=== PATIENT | female | born 1995 | race Caucasian/White ===

== ENCOUNTER 2020-01-30 09:00 | Outpatient (RCR) | payer OTHER, SELFPAY ==
--- NOTE | 2020-01-30 09:05 | BH.SGPN.GN ---
Behaviors/Verbalizations/Mental Status: [] Eye contact is good. Motor activity is appropriate. Appearance is casual. Speech is Appropriate. Mood is depressed. Affect is flat. Thoughts are linear and logical. No evidence of psychosis. Reviewed daily check in sheet and no reports of suicidal ideations or intent. Client Response/Progress/Benefit: [] Pt was attentive during group discussion and participated when prompted. Shared with the group that this is her first day in IOP. Reports that she entered the program to work on her anxiety and depression. Group provided support, encouragement, and feedback on the program, its benefits, and how to mis manager first day. No progress noted as this was pt's first day. Will continue in IOP to maintain safety, increase healthy coping, and stabilize mood. Narrative Note: []
--- NOTE | 2020-01-30 10:10 | BH.SGPN.GN ---
Behaviors/Verbalizations/Mental Status: []]Eye contact is good. Motor activity is appropriate. Appearance is casual. Speech is Appropriate. Mood is anxious and depressed. Affect is constricted. Thoughts are linear and logical. No evidence of psychosis. Client Response/Progress/Benefit: []Pt mostly passive participant AEB pt only providing input when elicited by therapist, however willing to complete worksheet and appeared to listen to others. Pt appeared to connect with others during discussion about impact of unhealthy anger responses. Shared her emotions underlying anger include: shame, hopelessness, disappointment, and pride. Pt identified the following ways she expresses anger: hostility, impulsive, sarcasm, isolate and self-deprecating jokes. Pt seemed to benefit from increased awareness of how unmanaged anger can impact self and others. Pt's first day. Pt to continue IOP to increase healthy coping skills, improve daily functioning and prevent decompensation. Narrative Note: []
--- NOTE | 2020-01-30 11:12 | BH.SGPN.GN ---
Behaviors/Verbalizations/Mental Status: []Client alert and oriented, casually dressed and groomed. Eye contact good. Motor activity appropriate. Speech within normal limits. Affect constricted. mood depressed. Thoughts linear, logical, no signs of hallucinations or delusions. Client Response/Progress/Benefit: []Pt was engaged throughout AEB contributing to group discussion and self-reflection. Pt contributed as the group provided examples of physical warning signs for anger and identified personal warning signs. These included: clenched jaw, shaking, flared nostrils, and stomach issues. Pt contributed as group brainstormed healthy coping skills for better managing anger which included: music, walking/exercise, opposite action, identifying distortions, DDD, thinking of the consequences, and meditation. Pt appeared to benefit from identifying different techniques to manage anger as well as gaining awareness of potential consequences of unmanaged anger. Pt selected listening to music and thinking of the consequences as coping skills pt would like to try to regulate anger. Client?s first day of IOP tx. Will continue IOP to prevent decompensation, reduce SI, and improve daily functioning. Narrative Note: []
--- NOTE | 2020-01-30 15:29 | BH.COMM ---
Communication Note - Communication with Client Communication Note: Met with client to complete initial paperwork. No significant changes since pre-admission screening. Completed [facility]. Client has history of one previous suicide attempt in 2011 via overdose. Client stated the overdose did not require medical intervention, but client did go to the ER. Client currently reports having thoughts of killing herself (with no intent) within the past month as well as thoughts of not caring if she . Client reports she has difficulty controlling the thoughts, but client is eventually able to stop them. Client shared the thoughts last for over an hour several times a week. Client denies any active SI, plan, or intent as of today and reports ability to maintain safety. No access to weapons at home and denies stockpiles of medication. Does not present as imminent danger to herself due to no active SI, plan, or intent. Protective factors. Future-oriented with hopes to graduate and become a therapist.
--- NOTE | 2020-01-31 09:05 | BH.SGPN.GN ---
Behaviors/Verbalizations/Mental Status: [] Eye contact is good. Motor activity is appropriate. Appearance is casual. Speech is Appropriate. Mood is depressed. Affect is flat. Thoughts are linear and logical. No evidence of psychosis. Reviewed daily check in sheet and pt reports 3/5 for suicidal ideations and 1/5 for intent. Therapist notified Client Response/Progress/Benefit: [] Pt was an active participant in group discussion. Emotion for today is hopeful. Mental health wins include wrapping [employer] gifts and cleaning her living room. Shared that she continues to utilize sleep as a coping skill which ultimately makes her more depression and less motivated. Small tasks such as picking up prescriptions seems overwhelming and exhausting therefore she talks herself out of them. Group provided some feedback regarding thought challenging and setting small goals which she appeared to be receptive too. No progress noted as this is 2nd day however reports being hopeful. Benefited from group feedback and empathy. Will continue in IOP to prevent decompensation, stabilize mood and increase healthy coping. Narrative Note: []
--- NOTE | 2020-01-31 10:10 | BH.SGPN.GN ---
Behaviors/Verbalizations/Mental Status: []Client alert and oriented, neatly dressed and groomed. Eye contact good. Motor activity appropriate. Speech within normal limits. Affect congruent to topics being discussed, mood dysthymic. Thoughts linear, logical, no signs of hallucinations or delusions. Client Response/Progress/Benefit: []Client receptive of session, attentive in discussion and activity. Client discussed the quote and connected with personal and interpersonal consequences of not managing emotions. Client helped group identify barriers that impact one?s ability to communicate when emotions are high. These barriers included; negative thoughts, anxiety, and shutting down. Group discussed why it is important to be able to communicate effectively when emotions are high. Client participated in the activity and did well to manage emotions throughout. Client shared it was hard for client to not have the full perspective during the activity, but client stated the activity ?was a good team building exercise.? Client appeared to benefit from increasing awareness of how emotions can impact communication and practicing in the moment coping skills. Client?s first week of IOP tx. Will continue IOP tx to prevent decompensation, improve daily functioning, and reduce negative thinking. Narrative Note: []
--- NOTE | 2020-01-31 14:16 | BH.MDN ---
Multi-Disciplinary Note - Note 30-min Individual Time Started:: 12:15 Date: 01/31/20 Purpose of session/treatment goals addressed:: The purpose of this session was to gather information on client's current stressors, symptoms, and treatment goals. Another goal was to build rapport and provide psychoeducation. Eye Contact:: Good Motor Activity:: Appropriate Appearance:: Neat Speech:: Appropriate Mood:: Dysthymic Affect:: Constricted Thoughts:: Linear, Logical, No evidence of hallucinations/delusions noted Staff Interventions:: Therapist used active listening and open-ended questions to explore client's current stressors, symptoms, history, and treatment goals. Therapist used strengths perspective to build rapport and provided psychoeducation on maintenance cycles and client's diagnoses. Client Response:: Client responded well to session, open to meeting with therapist. Client stated she felt more comfortable today in group and reports being hopeful that IOP will help client. Client connected with psychoeducation on maintenance cycles and stated that she has been struggling with a depressive episode for the past 3-4 months. Client shared she sleeps constantly and has a lot of negative thoughts about herself. Client reported ?I don?t self-harm physically, but I self-harm mentally.? Client stated she was also recently diagnosed with bipolar disorder, but client connects most with depression and not myriam. Client endorses history of impulsive behaviors, but it is uncertain if that is due to borderline or complex trauma. Client identified treatment goals for IOP which included: reducing sleep, increasing healthy coping skills, reducing impulsive behavior, making healthier choices, and reducing negative beliefs of self. Client is currently getting her masters in counseling and is very motivated. Client admits that she has unrealistic expectations for herself which leads to negative self-talk. Client reports being interested in learning CBT and DBT skills to help manage depression and borderline symptoms. Client stated she felt relief when diagnosed with BPD as client felt it gave a name to what I was going through. Client receptive to homework on behavioral activation. Risks/Concerns:: Client reports chronic thoughts of not wishing she existed. Client denies any active suicidal ideations, plan, or intent as of 01/31/20. Client reports ability to maintain safety today and is future oriented. Progress Toward Goals/Plan:: Client's second day of IOP tx. Client reports her anxiety about IOP has decreased and client felt more comfortable today. Client reports feeling motivated and hopeful that IOP will teach her coping skills to better manage depression. Client reports previously being diagnosed with borderline personality disorder and bipolar disorder. Client stated she relates most with the borderline personality diagnosis as client reports history of impulsive behaviors, low self-worth, and interpersonal relationship issues. Client currently endorses a depressed mood, increased sleep (up to 20 hours some days), anhedonia, low motivation, passive SI, and negative thoughts of self. Will continue IOP tx to prevent decompensation, improve mood stability, and increase healthy coping skills. Time Stopped:: 12:45
--- NOTE | 2020-01-31 14:17 | BH.MTP_ITS ---
Master Treatment Plan - Patient Information Program Physician:: Dr. Amy Granados Primary Therapist:: Venessa SIMS - Psychiatric Diagnoses Psychiatric Diagnoses:: Bipolar 2 disorder, most recent episode depressed; generalized anxiety disorder; Cluster B traits. Diagnosis Code(s):: F 31.81 - Estimated LOS Estimated LOS (in weeks):: 6 Problem/Goal #1 - Problem/Goal #1 Stated Goal:: Client will reduce depression, negative thoughts of self, and isolative behaviors due to Bipolar disorder through the Intensive Outpatient Program. Description of Barriers: Client reports history of impulsive behavior that impacts client's ability to maintain relationships. Client endorses a depressed mood, negative core beliefs, isolation, and unrealistic expectations of self. Client's job is mentally and physically straining on client and client is currently obtaining a master?s degree online. Additionally, client does not have an outpatient counselor and reports limited social supports. Functional Impact: Client is a 24-year-old female with a history of bipolar II and borderline personality disorder. Client was referred to [facility] by her outpatient psychiatrist, Dr. Benitez, at [place] [address]. Client was referred due to worsening of depressive symptoms over the past 3-4 months. Client endorses fleeting suicidal ideations, hopelessness, increased sleep, anhedonia, poor concentration, crying spells, poor appetite, and lack of motivation. Client has a history of one previous suicide attempt eight years ago. Client denies any active suicidal ideations at admission. Client has survival ambivalence and stated, I wouldn't mind if I didn't wake up. Client also endorses ruminations and anxiety about performance and often worries about what others think of client. Client's symptoms are currently impacting her ability to function at her baseline. Goal Relevant Strengths/Supports: Client is motivated, has good insight to triggers and symptoms, and is willing to learn new strategies. Client is currently getting her master?s in psychology and works [employer]. - Objectives Objective #1 Stated Objective: Client will learn and utilize 2-3 healthy coping strategies to better manage depressive and mood symptoms as shown by reduced DSM-5 scores. Interventions: Through group and individual sessions, therapist will help client identify triggers and warning signs of depression and emotional dysregulation including emotional, physical, and behavioral changes. Therapist will teach client various coping skills to manage her symptoms and give client tangible resources to use to regulate emotions. Therapist will use cognitive restructuring techniques and help client gain awareness of negative thoughts that reinforce depressive cycles. Therapist will help client incorporate behavioral activation and assist client in setting SMART goals. Discharge Criteria: Client will have met this goal when she can report learning and using at least 2 coping skills to manage depressive symptoms and show a reduction in DSM-5 symptoms. Target Date: 03/12/20 Review Date: 03/01/20 Status: open Objective #2 Stated Objective: Client will identify at least 2-3 negative self-talk messages used to reinforce negative core beliefs and low self-worth and replace thoughts with more realistic messages. Interventions: Therapist will help client identify distorted, negative beliefs about self and replace with more realistic, affirmative messages. Therapist will use CBT to help client increase insight to the connection between thoughts, emotions, and behaviors. Therapist will also use dialectical thinking to help client combat all or nothing expectations and perfectionism. Therapist will encourage client to practice thought challenging. Discharge Criteria: Client will have achieved this goal when can verbalize at least 2 negative self-talk messages and effectively replace those thoughts with affirmative messages. Target Date: 03/12/20 Review Date: 03/01/20 Status: open Problem/Goal #2 - Problem/Goal #2 Stated Goal:: Client will increase emotional regulation and reduce intensity and duration of anxiety symptoms. Description of Barriers: Client reports history of impulsive behavior that impacts client's ability to maintain relationships. Client endorses a depressed mood, negative core beliefs, isolation, and unrealistic expectations of self. Client's job is mentally and physically straining on client and client is currently obtaining a master?s degree online. Additionally, client does not have an outpatient counselor and reports limited social supports. Functional Impact: Client is a 24-year-old female with a history of bipolar II and borderline personality disorder. Client was referred to [facility] by her outpatient psychiatrist, Dr. Benitez, at [place] [address]. Client was referred due to worsening of depressive symptoms over the past 3-4 months. Client endorses fleeting suicidal ideations, hopelessness, increased sleep, anhedonia, poor concentration, crying spells, poor appetite, and lack of motivation. Client has a history of one previous suicide attempt eight years ago. Client denies any active suicidal ideations at admission. Client has survival ambivalence and stated, I wouldn't mind if I didn't wake up. Client also endorses ruminations and anxiety about performance and often worries about what others think of client. Client's symptoms are currently impacting her ability to function at her baseline. Goal Relevant Strengths/Supports: Client is motivated, has good insight to triggers and symptoms, and is willing to learn new strategies. Client is currently getting her master?s in psychology and works [employer]. - Objectives Objective #1 Stated Objective: Client will identify 2-3 cognitive distortions that lead to mood dysregulation and learn 2-3 ways to manage these thoughts to improve mood stability. Interventions: Therapist will provide education on the most common cognitive distortions and teach client the connection between thoughts, emotions, and feelings. Therapist will assist client in identifying, challenging, and replacing dysfunctional thoughts with positive, more realistic thoughts. Therapist will use CBT and DBT techniques to help client gain awareness of thinking errors and learn how to more effectively handle negative thoughts that reinforce unhealthy coping skills. Discharge Criteria: Client will have accomplished this goal when can identify at least 2 cognitive distortions that reinforce mood dysregulation and at least 2 c oping skills to manage negative thoughts. Target Date: 03/12/20 Review Date: 03/01/20 Status: open Objective #2 Stated Objective: Client will identify 2-3 anxiety triggers and 2 coping skills to reduce anxiety as shown by decreased DSM-5 cross cutting symptom measure scores. Interventions: Therapist will help client increase awareness of anxiety triggers and educate client on personal core beliefs associated with anxiety. Through group and individual therapy, client will learn various calming and mindfulness strategies to promote emotional regulation and reduction of anxiety. Therapist will encourage client to implement healthy coping skills on a regular basis and increase self-care in all areas. Discharge Criteria: Client will have accomplished this goal when can report at least 2 triggers for anxiety and 2 strategies to manage symptoms. Additionally, client will have accomplished this goal when she can report reduced DSM-5 cross cutting symptoms for anxiety. Target Date: 03/12/20 Review Date: 03/01/20 Status: open
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
--- NOTE | 2020-02-01 09:03 | BH.SGPN.GN ---
Behaviors/Verbalizations/Mental Status: []Eye contact is fair. Motor activity is appropriate. Appearance is casual. Speech is Appropriate. Mood is depressed and anxious. Affect is constricted. Thoughts are linear and logical. No evidence of psychosis. Client Response/Progress/Benefit: []Pt responded well to session AEB client openly sharing thoughts and feelings and listened attentively to others. Patient identified a mental positive as using upset action to make her self going into the pharmacy to get her medications. Client stated after she was able to successfully get her medications she felt more motivated and was able to get more done throughout the day. Client reports she did take a 1 hour nap but notes this is progress because she typically takes 3 to 4-hour naps. Client recognizes that sometimes her naps are just as a way to escape and are not very productive. Client reported additional mental positive as talking to her mom the phone whom is recovering from COVID. Client identified her current stressor is worrying about her mom's health during her recovery from COVID. Client stated she is currently feeling tired despite getting sufficient amount of sleep. Client seemed benefit from support from peers in regards to increasing active coping skills. Client is to continue IOP level of care to increase healthy coping skills, challenge distorted thoughts, and prevent decompensation. Narrative Note: []
--- NOTE | 2020-02-01 10:10 | BH.SGPN.GN ---
Behaviors/Verbalizations/Mental Status: [] Eye contact is good. Motor activity is appropriate. Appearance is casual. Speech is Appropriate. Mood is anxious. Affect is congruent. Thoughts are linear and logical. Client Response/Progress/Benefit: [] Pt was an active participant in group discussion and activity. Attentive during psychoeducation on the stages of change (pre-contemplation, contemplation, preparation, action, and maintain). Worked with peers to identify barriers to make changes which included; environment, doubting oneself, worry about what others think, toxic people, fears, lack of resources, doubting one's capability, and fear of failure. Participated in discussion with peers on the benefits of change which included; improved relationships, growth, improved mood, healthier environment, and improved mental health. Benefited by increasing awareness of the emotions of change as well as benefits and obstacles to making changes. Narrative Note: []
--- NOTE | 2020-02-01 10:30 | BH.NA ---
Physical Data - Vital Signs Pulse Rate: 77 Blood Pressure: 120/63 - Height/Weight Height: 1.6 m Weight:: 98.883 kg Weight in Pounds: 218.0 lbs Current Medication Compliance - Medication Compliance Do you take your medication as prescribed?: Yes Nutritional History - Appetite Nutritional Instructions:: If client shows signs of a swallowing problem, weight change of 10 pounds or more in the last month, or is on a diabetic diet, the physician will review and request a dietitian consult, as appropriate. All unintentional weight loss will be referred to the physician for decision on need for dietitian consult. Describe your appetite:: Good Additional nutritional information:: Client states recent weight loss but states she is intentionally trying to lose weight. Functional Assessment - Sleep Pattern Describe any problems with sleeping: Client states on days that she works, she is sleeping about 9 hours. Client states on her days off, she sleeps about 20 hours per day at times. - Activities Motor Activity:: Functional Sensory/Communication Assess - Communication Problems Do you have difficulty understanding what people are saying?: No What is your primary language?: [place] Medical Problems/History - Pain Assessment Do you have acute or chronic pain?: No - Additional History Additional comments:: bipolar, borderline personality Surgical History - Surgical History Have you had any surgeries? If so, list type and date:: Yes - tonsilectomy, wisdom teeth Substance Abuse - Substance Abuse Please describe substance abuse in the last 30 days:: Client denies alcohol use. Client states she vapes tobacco and has for approximately one month. Client reports past substance use, stating the last time she used marijuana was about 2 months ago. Client reports 1-2 cups of coffee per day. Mental Status Summary - Mental Status Significant Findings/Observations on Appearance and Mood:: Client is alert and oriented x 4. Client is wearing a mask due to Covid 19 pandemic. Client is casually groomed. Client is cooperative with assessment. Client makes good eye contact. Client's voice has normal rate and volume. Client appears mildly anxious. Client makes logical associations and has normal processing. Client denies delusions/hallucinations. Client states she has impulsive thoughts of SI at times, but denies methods/plan. Suicide Assessment - Suicidal Ideation Are you currently or have you been suicidal in the past?: Yes - fleeting SI Suicidal Intentional Rating Scale (SIRS): Suicidal thoughts (past) Physician Notification: If Active suicidal thoughts/Will not contract for safety is checked, contact physician and document in the Physician Notification section below. Past Psychiatric History - MH Treatment Hx Past Psychiatric Medications:: Abilify, gapapentin, Zoloft, Celexa, [place], Latuda Age of first mental health symptoms: Client states she was diagnosed with borderline personality about 3-4 years ago. Client states she was diagnosed with bipolar (depressed) in March of this year and has tried several different medications for same. Describe (age, circumstance, etc) any past hospitalizations: None. Current providers for mental health treatment (counselor, psychiatrist, family service caseworker, etc.): Dr. Benitez is psychiatrist at [place] [id number]. Fall Risk Assessment - Age Age: Less than 60 - Mental Status Mental Status: Willing & able to ask for assistance when needed - Physical Status Physical Status: No problems - Impairments Impairments: None - Elimination Elimination: Continent AND independent - Gait or Balance Gait or Balance: Walks independently - Hx of Falls History of falls in the past 6 months: No known history - Medications/Substances Psychotropics:: Antidepressants, Mood stabilizers Medications/substances used within the past 24 hours or ordered to administer: 1-2 of the medications/substances listed above - Total Score Total Points:: 1 RN Summary of Impressions - Impressions Recommendations: Include psychiatric and medical issues, treatment planning recommendations, and discharge planning needs. Impressions: Psychiatric Issues: Bipolar 2 disorder, most recent episode depressed; generalized anxiety disorder; cluster B traits - Level of Care How do the client's current symptoms and functional deficits support need for this level of care?: Client was referred to program by outpatient psychatrist. Client states she was thinking about voluntary hospitalization until she learned of IOP program. Client reports for the last 3-4 months feelings of increased depression and fleeting SI. Client reports still fleeting feelings of SI without plan. Client endorses increased sleep, hopelessness, irritable, and impulsive SI. IOP will promote gains and prevent further decompensation while providing social support and skills training.
--- NOTE | 2020-02-01 11:05 | BH.SGPN.GN ---
Behaviors/Verbalizations/Mental Status: []Client alert and oriented, neatly dressed and groomed. Eye contact good. Motor activity appropriate. Speech within normal limits. Affect constricted, mood dysthymic. Thoughts linear, logical, no signs of hallucinations or delusions. Client Response/Progress/Benefit: []Client responded well to session AEB taking notes and contributing when prompted. Client listened during psychoeducation on the change process and different emotions in each stage of change. Client identified a change client would like to make to improve mental health which was to ?work out more often? as client believes this change will increase self-esteem and mood. Client reports belief she is currently in between the preparation and action stages as client goes to the gym ?sometimes? but recognizes she has not been consistent. Client identified personal barriers to change and reported she plans to practice thought reframing and opposite action to overcome her barriers. Appeared to benefit from identifying what stage of change client is in and identifying strategies to overcome barriers. Will continue IOP tx to prevent decompensation, combat cognitive distortions, and improve daily functioning. Narrative Note: []
[2020-02-01 11:56] VITALS: BP 120/63; PULSE 77
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
--- NOTE | 2020-02-01 12:29 | BH.PSY.EVA_ITS ---
Initial Treatment Plan - Patient Information Visit Information: ADMISSION DATE: EXPECTED LOS: 4-6 weeks - Problems/Symptoms Problem #1:: Depression Symptom:: Sadness, crying, anhedonia, increased sleep, passive thoughts a nd passive suicidal ideation Problem #2:: Anxiety Symptom:: Rumination, worry, avoidance
--- NOTE | 2020-02-06 09:10 | BH.SGPN.GN ---
Behaviors/Verbalizations/Mental Status: [] Eye contact is good. Motor activity is appropriate. Appearance is casual. Speech is Appropriate. Mood is euthymic. Affect is full. Thoughts are linear and logical. No evidence of psychosis. Reviewed daily check in sheet and no reports of suicidal ideations or intent. Client Response/Progress/Benefit: [] Pt participated at times during group discussions. Emotion for today is content. Shared some mental health wins over the past 4 days most notably that she stayed awake from 10a-10pm yesterday. Since sleep has been primary coping skill and mean to escape she had been sleeping 13 hours per day. She is proud of herself. Also insight that anxiety and worry impact her more than she originally thought. Due to snowy weather over the holiday her anxiety was increased. She actually called off work due to her anxiety about driving in the snow. Three weeks into her new medication and she is optimistic. Also optimistic about IOP. Progress noted per pt report. Benefited from group support, encouragement, and feedback. Will continue in IOP to increase healthy coping, stabilize mood, and improve functioning. Narrative Note: []
--- NOTE | 2020-02-06 10:18 | BH.SGPN.GN ---
Behaviors/Verbalizations/Mental Status: []Client alert and oriented, casually dressed and groomed. Eye contact good. Motor activity appropriate. Speech within normal limits. Affect congruent, mood euthymic and anxious. Thoughts linear, logical, no signs of hallucinations or delusions. Client Response/Progress/Benefit: []Client engaged throughout session AEB active participation. Connected with discussion on crisis and how coping with external crises by using unhealthy coping skills could result in a personal crisis. Client shared her responses to crisis can be impulsive and has led to client losing relationships in the past. Group reflected on the importance of having awareness of personal warning signs in order to prevent reaching crisis point. Group identified potential warning signs for crisis and client completed the personal warning signs worksheet. Client identified personal crisis warning signs to include: sleeping more, negative thinking, and loss of interest. Client benefited by increasing awareness of what leads to crisis and personal warning signs. Progress noted in client?s report of practicing opposite action this weekend. Will continue IOP tx to prevent decompensation, improve mood stability, and reduce negative thinking. Narrative Note: []
--- NOTE | 2020-02-06 11:20 | BH.SGPN.GN ---
Behaviors/Verbalizations/Mental Status: []Client alert and oriented, casually dressed and groomed. Eye contact good. Motor activity appropriate. Speech within normal limits. affect congruent. Mood euthymic. Thoughts linear, logical, no signs of hallucinations or delusions. Client Response/Progress/Benefit: []Client responded well to session as evidenced by client listening attentively to others and providing strategies during discussion. Client identified her warning signs for crisis and gained further awareness of earliest warning signs.Client created a crisis action plan to help client better manage warning signs for crisis. Client?s action plan for sleeping more than usual included: opposite action, finding something to occupy self, engaging in an activity like crafts or exercise. Client appeared to benefit from creating a crisis action plan and increasing self-awareness. Progress noted in client?s increased engagement in program and reporting being able to not sleep as avoidance yesterday. Client to continue IOP tx to increase healthy coping, improve daily functioning, and prevent decompensation.
--- NOTE | 2020-02-06 13:47 | BH.MDN_ITS ---
Multi-Disciplinary Note - Note 45-min Individual Time Started:: 12:02 Date: 02/06/20 Purpose of session/treatment goals addressed:: The purpose of this session was to work on goal #1 of client's tx plan. Eye Contact:: Good Motor Activity:: Appropriate Appearance:: Casual Speech:: Appropriate Mood:: Euthymic, Anxious Affect:: Congruent Thoughts:: Linear, Logical, No evidence of hallucinations/delusions noted Staff Interventions:: Therapist reviewed client's homework from last session. Therapist used cognitive restructuring techniques and helped client gain awareness of negative thoughts that reinforce depressive cycles. Therapist reviewed the common cognitive distortions and used dialectical thinking to help client combat all or nothing expectations and perfectionism. Therapist gave client a thought log for homework. Client Response:: Client responded well to session, open to meeting with therapist. Client did homework from last session and reports behavioral activation and opposite action were helpful. Client shared Thursday client did not nap and spent time with two different supports. Client gained awareness that her anxiety is more impactful to my mental health than I thought. Client shared she called off work due to increased anxiety triggered by the snowy weather. Client able to use self-compassion to reframe this event and willing to learn more about the cognitive triangle. Client read through the different distortions and connected most with all or nothing thinking, disqualifying the positives, mind-reading, and shoulds/musts. Client recognized that her all or nothing thinking impacts her self-worth, performance in school, and friendships. Client connected that all or nothing thinking can reinforce borderline personality traits. Client willing to practice self-compassion and thought challenging techniques. Client will complete a thought log for homework. Risks/Concerns:: Client was future oriented and reports high motivation today due to good stress. Client denies any active suicidal ideations, plan, or intent as of 02/06/20. Client's daily symptom tracker scores were significantly below her baseline. Progress Toward Goals/Plan:: Client reports progress in using opposite action this weekend which helped client get out of the house and not take any naps Thursday. Client also reports overall improved mood today. Client stated her an xiety became so bad on Thursday she had to call off work. Client continues to endorse ruminations, avoidance behaviors, negative thoughts of self, mood instability, and low motivation. Client will continue IOP tx to prevent decompensation, improve emotional regulation skills, and improve daily functioning Time Stopped:: 12:40
== END 2020-02-09 23:59 ==
LOC: BHIOP 09:00
PROVIDERS: Referring Provider Psychiatry & Neurology Psychiatry; Visit Provider Psychiatry & Neurology Psychiatry
DX: F31.81 Bipolar II disorder (principal); F41.8 Other specified anxiety disorders; Z79.899 Other long term (current) drug therapy; Z91.5 Personal history of self-harm; F17.210 Nicotine dependence, cigarettes, uncomplicated; F12.90 Cannabis use, unspecified, uncomplicated
CPT/HCPCS: H0035; 90832; 90834; 90853

== ENCOUNTER 2020-02-13 09:00 | Outpatient (RCR) | payer OTHER, SELFPAY ==
[2020-02-10 00:41] VITALS: BP 120/63; PULSE 77
--- NOTE | 2020-02-13 09:00 | BH.SGPN.GN ---
Behaviors/Verbalizations/Mental Status: [] Eye contact is good. Motor activity is appropriate. Appearance is neat. Speech is Appropriate. Mood is euthymic. Affect is full. Thoughts are linear and logical. No evidence of psychosis. Reviewed daily check in sheet and no reports of suicidal ideations or intent. Client Response/Progress/Benefit: [] Pt was an active participant in group discussion. Emotion for today is estatic. Shared that she has had no naps since last week , which is huge improve. Feeling more motivated and less depressed. Functioning better at home and work. I haven't call off work due to mental issues all week. Has set some goals for the new year which include reading a book a month and losing 5 pounds per month. Progress noted per pt report. Benefited from group praise. Will continue in IOP to maintain safety, increase healthy coping, and improve functioning. Narrative Note: [] This psychotherapy group was provided via telehealth using two-way, real-time interactive telecommunication technology between the patients and the provider.?The interactive telecommunication technology included audio and video.? ?The patient was offered telemedicine as an option for care delivery during the COVID-19 pandemic and consented to this option. ?Patient location: [place] ?Provider located at [facility]
--- NOTE | 2020-02-13 10:15 | BH.SGPN.GN ---
Behaviors/Verbalizations/Mental Status: []Client alert and oriented, casually dressed and fairly groomed. Eye contact good. Motor activity appropriate. Speech within normal limits. Affect congruent, mood euthymic.Thoughts linear, logical, no signs of hallucinations or delusions. Client Response/Progress/Benefit: []Client was an engaged participant AEB taking notes, providing some input, and attentively listening throughout. Connected with group topic of perspective and the impacts of one?s perspective on mental health. cClient worked with the group to identify how a negative perspective can impact mental health which included: self-fulfilling prophecy, maintain unhealthy coping, prevent progress and lead to more negative thinking.?Client contributed as group discussed ways a positive perspective can impact mental health. Client appeared to benefit from increasing understanding of mental health benefits of a positive perspective and potential consequences to progress when perspective is negative. Progress noted by client's report of improved mood. Client is to continue IOP to maintain gains, continue to challenge negative thoughts and prevent decompensation. Narrative Note: []
--- NOTE | 2020-02-13 11:15 | BH.SGPN.GN ---
Behaviors/Verbalizations/Mental Status: []Client alert and oriented, casually dressed and groomed. Eye contact good. Motor activity appropriate. Speech within normal limits. Affect congruent. Mood euthymic. Thoughts linear, logical, no signs of hallucinations or delusions. Client Response/Progress/Benefit: []Client responded well to session, actively participating. Connected with the benefits of recognizing personal strengths on improving mental health which included: increased self-confidence, improved self-esteem, and better follow through. Client able to identify personal strengths she possesses which included: dedication, persistence, intelligence, empathy, and being open-minded. Group discussed how personal strengths can help client make progress for mental health and identified strategies to help them acknowledge strengths more often. Client shared she wants to practice using her empathy and knowledge of coping skills to become more self-compassionate. Appeared to benefit from recognizing personal strengths and identifying strategies to increase recognition of strengths. Client plans to continue IOP tx to promote gains, decrease negative thinking, and improve mood stability. Narrative Note: []
--- NOTE | 2020-02-14 15:07 | BH.COMM ---
Communication Note - Communication with Client Communication Note: Therapist and IOP director met with client to discuss changes in client's insurance deductable due to the new year and plan of care moving forward. Client plans to continue IOP tx and will attend tomorrow 02/14/19.
--- NOTE | 2020-02-15 09:05 | BH.SGPN.GN ---
Behaviors/Verbalizations/Mental Status: []Client alert and oriented, casually dressed and appropriately groomed. Eye contact fair. Motor activity appropriate. Speech within normal limits. Affect congruent. Mood euthymic, slightly anxious. Thoughts linear, logical, no signs of hallucinations or delusions. Client Response/Progress/Benefit: []Pt responded well to session AEB pt listening attentively to peers and sharing thoughts and feelings. Pt reported mental health positive as choosing to invest in herself by continuing to stay in IOP, despite worries about money since her insurance deductible is back to zero. Pt stated she realized if she didn't choose to invest in herself then she likely wouldn't be able to function much longer. Pt identified additional mental health positive as taking time to get her hair done. Progress noted with pt putting her own mental health as a priority. Pt is to continue IOP to increase health coping, challenge distorted thoughts and prevent decompensation. Narrative Note: []
--- NOTE | 2020-02-15 10:10 | BH.SGPN.GN ---
Behaviors/Verbalizations/Mental Status: [] Eye contact is good. Motor activity is appropriate. Appearance is casual. Speech is Appropriate. Mood is euthymic. Affect is full. Thoughts are linear and logical. No evidence of psychosis. Client Response/Progress/Benefit: [] Pt was an active participant in group discussions. Attentive during psycho-education on 4 types of conflict styles (Competing, Collaborating, Avoiding, and Accommodating). Worked with group to define conflict and identify how conflict is helpful; (allows us to grow, helps us stand up for ourselves, empowers us, helps clarify, and helps us gain clarification). With peers identified what prevents them from addressing or managing conflict which included; emotions, past experiences, fear, upbringing, scared how they will react, fear of backlash from others, and possibility on things escalating. Pt believes her conflict style is competing which has drawbacks of not being open to others, guilt, and lost relationships, and being aggressive. Benefited from group due to increase insight and awareness of conflict, conflict styles, and obstacles to managing conflict. Narrative Note: []
--- NOTE | 2020-02-15 11:11 | BH.SGPN.GN ---
Behaviors/Verbalizations/Mental Status: []Client alert and oriented, casually dressed and groomed. Eye contact good. Motor activity appropriate. Speech within normal limits. Affect congruent, mood euthymic. Thoughts linear, logical, no signs of hallucinations or delusions. Client Response/Progress/Benefit: []Client engaged in session AEB contributing to discussion and taking notes. Client did well to participate during the activity in which participants were challenged to eliminate various items through group consensus. Client contributed to discussion of the barriers that occurred during the activity as well as the conflict resolution strategies. Client reviewed the worksheet on fair fighting rules to cope with conflict and client selected asking herself why she is upset before addressing conflict as the skill client would like to improve. Client shared this skill could reduce client?s impulsive reactions to conflict. Appeared to benefit from learning strategies to better manage conflict. Progress noted in client?s report of reduced sleeping and improved mood this week. Will continue IOP tx to reduce negative thinking, increase emotional regulation skills, and further improve functioning. Narrative Note: []
--- NOTE | 2020-02-21 09:10 | BH.SGPN.GN ---
Behaviors/Verbalizations/Mental Status: [] Eye contact is good. Motor activity is appropriate. Appearance is casual. Speech is Appropriate. Mood is depressed. Affect is flat. Thoughts are linear and logical. No evidence of psychosis. Reviewed daily check in sheet and no reports of suicidal ideations or intent. Client Response/Progress/Benefit: [] Pt was an active participant in group discussions on empathy and vulnerability in mental health. Emotion for today is motivated. Shared mental health win that she is ahead of schedule with her assignments for college. Reports that she did nap yesterday which she reports was a relapse as she had been doing well. She believes that his was related to shift change at work and reports that she is motivated to continue with goal to not utilize sleep to cope. Daily symptom tracker notes 3/5 for depression and 1/5 for anger. Benefited from education and awareness on group discussion topics. Will continue in IOP to maintain gains, prevent decompensation, and improve functioning. Narrative Note: []
--- NOTE | 2020-02-21 10:13 | BH.SGPN.GN ---
Behaviors/Verbalizations/Mental Status: []Alert and oriented. Casually dressed and groomed. Eye contact good. Motor activity appropriate. Speech within normal limits. Mood euthymic, affect constricted. Thoughts linear, logical, no signs of hallucinations or delusions. Client Response/Progress/Benefit: []Client engaged participant AEB client providing during group session and listening attentively to peers. Group discussed healthy versus unhealthy coping skills and what contributes to people using unhealthy skills. The group stated unhealthy coping skills tend to be easy, habitual, and temporary relief. Client helped group identify examples of unhealthy coping skills. Client participated in the group activity and connected that a healthy foundation of coping skills is composed of healthy internal and external coping skills. Client seemed to benefit from increased awareness of the importance of increasing healthy coping skills and consequences of utilizing unhealthy coping skills. Progress noted as client continues to report improved functioning at home and better mood. Will continue IOP tx as client can benefit from combatting distortions that reinforce unhealthy coping and depression. Narrative Note: []
--- NOTE | 2020-02-21 11:13 | BH.SGPN.GN ---
Behaviors/Verbalizations/Mental Status: []Alert and oriented. Casually dressed and groomed. Eye contact good. Motor activity appropriate. Speech within normal limits. Mood euthymic, affect constricted. Thoughts linear, logical, no signs of hallucinations or delusions. Client Response/Progress/Benefit: []Client responded well to session, actively listening and providing examples. Group discussed the different categories of coping skills which included distraction, emotional release, grounding, self-love, and thought challenging. Client participated in creating a coping skills ?menu? from the five categories of coping skills. Client's coping skill menu included: cooking/baking, journaling, 5-senses, identifying small wins, and thought logs. Progress noted in client's improved mood and self-report of using skills outside treatment environment. Appeared to benefit from increasing repertoire of healthy coping skills. Will continue tx to decrease negative thinking and further improve daily functioning impacted by mental health. Narrative Note: []
--- NOTE | 2020-02-22 14:47 | BH.COMM ---
Communication Note - Communication with Client Communication Note: Client canceled her scheduled IOP session on the day client was to meet with her individual IOP therapist. Client was unable to meet with therapist of week 02/20/20 of as a result.
--- NOTE | 2020-02-29 08:27 | BH.COMM ---
Communication Note - Communication with Client Communication Note: Client canceled all her IOP sessions this week. Client did not appear in crisis when she cancelled. Due to cancellations, client unable to meet with IOP therapist for the second week in a row. IOP staff to discuss plan of care and barriers. Therapist called to reach out to client and left a message.
--- NOTE | 2020-03-05 08:29 | BH.DS ---
Discharge Summary - Demographics Date of Admission:: 01/30/20 Discharge Date: 03/05/20 Presenting Problems at Admission:: Client is a 24-year-old female with a history of bipolar II and borderline personality disorder. Client was referred to [facility] by her outpatient psychiatrist, Dr. Benitez, at [place] [address]. Client was referred due to worsening of depressive symptoms over the past 3-4 months. At admission, client endorsed fleeting suicidal ideations, hopelessness, increased sleep, anhedonia, poor concentration, crying spells, poor appetite, and lack of motivation. Client was sleeping most of the day on her days off work as well as isolating from supports. Client?s symptoms were also interfering with her schooling. At admission, client reported survival ambivalence and stated, I wouldn't mind if I didn't wake up. Client also endorsed ruminations and anxiety about performance and often worries about what others think. Client's symptoms were impacting her social, occupational, and educational functioning. Discharge Diagnoses:: Bipolar 2 disorder, most recent episode depressed F31.81; generalized anxiety disorder; Cluster B traits. Reason for Discharge:: Client voluntarily discharged from [facility] and reported she no longer wishes to participate in [facility] level of care due to finances and commute. - Treatment Progress During Treatment & Response: Client responded well to treatment for the first two weeks as client was an active group member and engaged in individual sessions. Client?s attendance after the new year became variable and client canceled her scheduled sessions several times. Client did not complete [facility] due to finances and the commute, so client was unable to accomplish treatment goals. Client did make progress with reducing napping and recognizing negative thought patterns. Client took notes during group sessions and learned numerous healthy coping skills while in [facility]. Prior to discharge client was reporting improved functioning at school and slight improvement in reducing isolative behaviors. Issues Still to be Addressed:: Client can benefit from ongoing counseling to reinforce healthy coping skills, challenge distorted thought patterns, and help client improve interpersonal relationship skills. Client wanted to work on learning how to manage her borderline personality traits, but due to early discharge and variable attendance, client did not get to accomplish this goal. Lastly, client can benefit from increasing self-compassion and challenging black and white thinking. Discharge Recommendations/Instructions:: Client will continue seeing Dr. Benitez at [place] [address] for medication management. Client did not have an outpatient therapist at discharge, but client was provided information for [facility], [facility], and [facility]. Discharge Handout: Complete Discharge Handout with client on aftercare options and continuity of care.
== END 2020-03-05 09:00 | disposition home or self-care (01) ==
LOC: BHIOP 09:00
PROVIDERS: Referring Provider Psychiatry & Neurology Psychiatry; Visit Provider Psychiatry & Neurology Psychiatry
DX: F31.81 Bipolar II disorder (principal); F41.8 Other specified anxiety disorders
CPT/HCPCS: H0035; 90853